=== PATIENT | male | born 1990 | race Caucasian/White ===

== ENCOUNTER 2025-02-06 10:36 | Emergency (ER) | payer MEDICAID ==
[~2025-02-06] VITALS: Ht 177.8 cm; Wt 72.6 kg
[2025-02-06 10:45] VITALS: BP 121/78; TEMP 36.9; O2SAT 100
[2025-02-06 10:46] VITALS: PULSE 82; RESP 16; O2SAT 99
[2025-02-06] MEDS ORDERED: RALT400T MT (11:41)
[2025-02-06] MEDS ORDERED: EMTR1TAB11 MT (11:41)
[2025-02-06 12:43] LABS: BASOPHILS % 0.3 % (0.0-2.0); EOSINOPHILS % 0.4 % (0.0-5.0); HEMATOCRIT. 42.9 % (42.0-52.0); MEAN CORPUSCULAR HEMOGLOBIN 31.2 pg (28.0-32.0); MEAN CORPUSCULAR HGB CONC 34.9 g/dL (31.0-37.0); MEAN CORPUSCULAR VOLUME 89.2 fL (80.0-94.0); MEAN PLATELET VOLUME 8.6 fl (7.4-10.4); MONOCYTES % 9.6 % (2.0-8.0); NEUTROPHILS % 72.7 % (40.0-76.0); PLATELET 255 x1000/uL (130-400); RED BLOOD CELL COUNT 4.81 mill/uL (4.7-6.1); RED CELL DISTRIBUTION WIDTH 12.7 % (11.6-14.6)
[2025-02-06 12:44] LABS: CARBON DIOXIDE 27 mEq/L (21-32); CHLORIDE 103 mEq/L (98-107); POTASSIUM 3.8 mEq/L (3.5-5.1); SODIUM 140 mEq/L (136-145)
[2025-02-06 12:45] LABS: CALCIUM 10.2 mg/dL (8.7-10.4)
[2025-02-06 12:50] LABS: CREATININE 0.9 mg/dL (0.6-1.3); GLUCOSE 90 mg/dL (70-105); UREA NITROGEN BLOOD 12 mg/dL (9-23)
[2025-02-06 12:51] LABS: ALANINE AMINOTRANSFERASE 20 IU/L (10-49); ASPARTATE AMINOTRANSFERASE 40 IU/L (<34)
[2025-02-06 12:52] LABS: ALBUMIN 4.6 g/dL (3.2-4.8); BILIRUBIN DIRECT 0.5 mg/dL (<=3.0); BILIRUBIN TOTAL 1.6 mg/dL (0.1-1.0); PROTEIN TOTAL 7.5 g/dL (6.0-8.3)
[2025-02-06] MEDS: CEFTRIAXONE SODIUM 500MG VIAL IM ONE (13:16)
[2025-02-06] MEDS: AZITHROMYCIN 500 MG TABLET PO ONE (13:16)
[2025-02-06 13:43] LABS: CLARITY URINE CLEAR (CLEAR); COLOR URINE YELLOW (YELLOW); GLUCOSE URINE NEGATIVE (NEGATIVE); KETONES URINE 1+ (NEGATIVE); LEUKOCYTE ESTERASE URINE NEGATIVE (NEGATIVE); NITRITE URINE NEGATIVE (NEGATIVE); OCCULT BLOOD URINE NEGATIVE (NEGATIVE); PROTEIN URINE NEGATIVE (NEGATIVE); SPECIFIC GRAVITY URINE 1.012 (1.005-1.030); UROBILINOGEN URINE 0.2 E.U./dL (0.2-1.0)
[2025-02-08 09:08] LABS: HIV SCREEN 4G Non Reactive (Non Reactive)
[2025-02-09 04:07] LABS: CHLAMYDIA TRACHOMATIS NAA Negative (Negative); NEISSERIA GONORRHOEAE NAA Negative (Negative)
== END 2025-02-06 13:40 | disposition home or self-care (01) ==
LOC: ER 10:36
DX: Z20.2 Contact with and (suspected) exposure to infections with a predominantly sexual mode of transmission (principal); J45.909 Unspecified asthma, uncomplicated; F41.9 Anxiety disorder, unspecified
CPT/HCPCS: 99283; 87491; 87591; 80076; 80048; 81003; 85025; 36415; 87389; 96372; J0696